=== PATIENT | female | born 1995 | race Hispanic/Latino ===

== ENCOUNTER 2023-10-06 10:40 | Outpatient (CLI) | payer OTHER | END 2023-10-06 10:41 | disposition home or self-care (01) | LOC: CSHULT 10:40 | PROVIDERS: ATTEND Family Medicine | DX: O99.213 Obesity complicating pregnancy, third trimester (principal); O99.619 Diseases of the digestive system complicating pregnancy, unspecified trimester; Z3A.33 33 weeks gestation of pregnancy; E66.3 Overweight; K21.9 Gastro-esophageal reflux disease without esophagitis | CPT/HCPCS: 76805 ==